=== PATIENT | female | born 1985 | race Caucasian/White ===

== ENCOUNTER 2023-04-25 12:53 | Emergency (ER) | payer OTHER ==
[2023-04-25 14:08] LABS: BASOPHILS % (AUTO) 0.4 %; EOSINOPHILS # (AUTO) 0.1 10^3/uL (0.0-0.7); EOSINOPHILS % (AUTO) 1.1 %; HGB - HEMOGLOBIN 14.6 g/dL (12.0-16.0); LYMPHOCYTES # (AUTO) 2.7 10^3/uL (1.5-3.5); LYMPHOCYTES % (AUTO) 35.6 %; MEAN CORPUSCULAR HGB CONC 33.2 g/dL (32.0-36.0); MEAN CORPUSCULAR VOLUME 93.4 fL (81.0-99.0); MEAN PLATELET VOLUME 8.9 fL (7.9-10.8); MONOCYTES # (AUTO) 0.6 10^3/uL (0.0-1.0); MONOCYTES % (AUTO) 7.4 %; NEUTROPHILS # (AUTO) 4.2 10^3/uL (1.5-6.6); NEUTROPHILS % (AUTO) 55.4 %; PLT - PLATELET COUNT 238 10^3/uL (130-450); RED BLOOD COUNT 4.71 10^6/uL (4.20-5.40); RED CELL DISTRIBUTION WIDTH 12.1 % (12.0-15.0); WHITE BLOOD COUNT 7.6 x10^3/uL (4.8-10.8)
[2023-04-25 14:22] LABS: ALBUMIN 4.9 g/dL (3.2-5.5); ALBUMIN/GLOBULIN RATIO 1.6 (1.0-2.2); BILIRUBIN,TOTAL 0.4 mg/dL (0.2-1.0); CALCIUM 10.1 mg/dL (8.5-10.3); CREATININE 0.8 mg/dL (0.6-1.3); POTASSIUM 4.6 mmol/L (3.5-4.5); TOTAL PROTEIN 7.9 g/dL (6.4-8.9)
[2023-04-25] MEDS ORDERED: KETOROLAC 15 MG/ML VIAL IVP STA (14:56)
--- NOTE | 2023-04-25 14:57 | ED Physician Documentation ---
PD HPI ABD PAIN - Stated complaint Stated Complaint: L BACK PX,CHILLS,ABD PX - Chief complaint Chief Complaint: Abd Pain - History obtained from History obtained from: Patient - Additional information Additional information: 37-year-old otherwise healthy woman has had left flank pain for the last week generally worsening. No injury. Nothing really makes it better or worse. Over the last day though she has developed chills and nausea with it and it be has become more severe. It is not related to eating. Her daughter whom she is breast-feeding kind of stood up on her abdomen today and it was quite painful. Review of Systems Constitutional: reports: Chills. denies: Fever Cardiac: denies: Chest pain / pressure, Palpitations Respiratory: denies: Dyspnea, Cough GI: reports: Abdominal Pain, Nausea. denies: Vomiting, Constipation, Diarrhea : denies: Dysuria, Frequency, Hesitancy PD PAST MEDICAL HISTORY - Past Medical History Past Medical History: No - Past Surgical History Ortho: Other /PIN DRAFTER: Breast implants - Present Medications Home Medications: Ambulatory Orders Medication Instructions Recorded Confirmed Oxycodone HCl/Acetaminophen 1 - 2 each PO Q6H PRN #14 tablet 04/25/23 [Percocet 5-325 mg Tablet] - Allergies Allergies/Adverse Reactions: Allergies Allergy/AdvReac Type Severity Reaction Status Date / Time No Known Drug Allergies Allergy Verified 04/25/23 13:43 - Social History Does the pt smoke?: No Smoking Status: Never smoker Does the pt drink ETOH?: No Does the pt have substance abuse?: No - Immunizations Immunizations are current?: No PD ED PE NORMAL - Vitals Vital signs reviewed: Yes - General General: Alert and oriented X 3, No acute distress - Cardiac Cardiac: RRR, No murmur - Respiratory Respiratory: No respiratory distress, Clear bilaterally - Abdomen Abdomen: Normal bowel sounds, Soft, Other (Mild left lower quadrant tenderness without surgical signs. No flank tenderness or rash.) - Neuro Neuro: Alert and oriented X 3, Normal speech Results - Vitals Vitals: Vital Signs - 24 hr 04/25/23 04/25/23 04/25/23 13:16 15:26 18:17 Temperature 37 C Heart Rate 86 92 71 Respiratory 16 18 18 Rate Blood Pressure 146/88 H 109/68 119/70 O2 Saturation 100 97 100 Oxygen O2 Source Room air - Labs Labs: Laboratory Tests 04/25/23 04/25/23 04/25/23 13:45 14:04 14:04 WBC 7.6 RBC 4.71 Hgb 14.6 Hct 44.0 MCV 93.4 MCH 31.0 MCHC 33.2 RDW 12.1 Plt Count 238 MPV 8.9 Neut # (Auto) 4.2 Lymph # (Auto) 2.7 Sandoval # (Auto) 0.6 Eos # (Auto) 0.1 Baso # (Auto) 0.0 Absolute Nucleated RBC 0.00 Nucleated RBC % 0.0 Sodium 140 Potassium 4.6 H Chloride 101 Carbon Dioxide 33 H Anion Gap 6.0 BUN 14 Creatinine 0.8 Estimated GFR (MDRD) 82 L Glucose 99 Calcium 10.1 Total Bilirubin 0.4 AST 30 ALT 42 Alkaline Phosphatase 52 Total Protein 7.9 Albumin 4.9 Globulin 3.0 Albumin/Globulin Ratio 1.6 Lipase 24 Urine Color YELLOW Urine Clarity CLEAR Urine pH 6.0 Ur Specific [place] 1.025 Urine Protein NEGATIVE Urine Glucose (UA) NEGATIVE Urine Ketones NEGATIVE Urine Occult Blood NEGATIVE Urine Nitrite NEGATIVE Urine Bilirubin NEGATIVE Urine Urobilinogen 0.2 (NORMAL) Ur Leukocyte Esterase NEGATIVE Ur Microscopic Review NOT INDICATED Urine Culture Comments NOT INDICATED Urine HCG, Qual NEGATIVE PD Medical Decision Making - ED course ED course: 37-year-old with left flank pain for about a week, worse with movement. She had chills and nausea but no fevers or shortness of breath. Given the location and left lower quadrant tenderness initial concern was for diverticulitis/pyelonephritis. No evidence of this on CT/urinalysis and her basic blood work including CBC and CMP were normal/unremarkable. She is midcycle right now and just had her first menses after a few years as she is breast-feeding. On my view of the CT I did wonder if her uterus was prominent and she also had what I thought was a slightly excessive stool load. She went for an ultrasound as well and the RDMS reported to me as normal other than a small simple right ovarian cyst. She has a lot of pain with motion and this may just be regular old back pain, but given the abdominal tenderness I gave her close return precautions and we will trial some MiraLAX as well. Departure - Departure Disposition: 01 Home, Self Care Clinical Impression: Back pain Qualifiers: Back pain location: low back pain Chronicity: acute Back pain laterality: left Sciatica presence: without sciatica Qualified Code(s): M54.50 - Low back pain, unspecified Condition: Good Record reviewed to determine appropriate education?: Yes Instructions: ED Abdominal Pain Female Non-Specific Abdominal Pain, ED Neck Back Pain General Prescriptions: Oxycodone HCl/Acetaminophen [Percocet 5-325 mg Tablet] 1 - 2 each PO Q6H PRN #14 tablet PRN Reason: pain Comments: Initially I wondered if you might have diverticulitis given that you were tender in the left lower quadrant, there was no evidence of this on CT. The CT was officially read as normal but to my I wondered if you had a prominent uterus and there was somewhat higher than average stool load. The ultrasound was reported to me as normal as well, this is more sensitive for uterine issues. Unclear if the pain is coming from your back and might just be regular rolled back pain, but given that you are tender in the left lower quadrant I like to to return if worse or if not better over the next couple of days. You can take ibuprofen in addition to the prescription pain medication. Regardless, follow-up with your primary care physician to discuss this visit. I sent your prescription electronically to the [facility] in [place]. I am prescribing a short course of narcotic pain medication for you. These are potentially dangerous and addictive medications that should be used carefully. These medications may constipate you. Take an [id number]-[id number] stool softener (docusate) twice daily with plenty of water while taking these medications. If you go 24 hours without a bowel movement, take [id number] miralax, per package instructions. Do not drink or drive while taking these medications. If you received narcotic or sedating medications while in the emergency department, do not drive for 24 hours. Store this medication in a safe, secure place and out of reach of children. It is a violation of federal law to give or sell this medication to another pers on or to use in a manner other than prescribed. The ED will not refill narcotic prescriptions, including prescriptions lost or stolen. To dispose of unwanted medications: 1. [facility]'s Office provides a drop box for medication in pill form only (no liquids) 8:00 am to 4:30 p.m. Friday-Friday in the lobby of [facility], [address] Empty pills into ziplock bag before disposal. Call [phone] for information. 2.[employer] is a free service available to all [facility] residents. Go to [email or web address] Note that many narcotic pain relievers also contain Tylenol/acetaminophen. Please ensure that your total dose of acetaminophen from all sources does not exceed 3 g (3000 mg) per day. Forms: PCP List
[2023-04-25 14:58] LABS: BILIRUBIN,URINE NEGATIVE (NEGATIVE); CLARITY,URINE CLEAR (CLEAR); GLUCOSE, URINE (UA) NEGATIVE (NEGATIVE); HCG UR QUAL NEGATIVE; KETONES,URINE (UA) NEGATIVE (NEGATIVE); LEUKOCYTE ESTERASE, URINE NEGATIVE (NEGATIVE); NITRITE,URINE NEGATIVE (NEGATIVE); OCCULT BLOOD,URINE NEGATIVE (NEGATIVE); PROTEIN,URINE NEGATIVE (NEGATIVE); UROBILINOGEN,URINE 0.2 (NORMAL) E.U./dL (NORMAL)
--- NOTE | 2023-04-25 19:01 | CT Report ---
PROCEDURE: ABDOMEN/PELVIS W INDICATIONS: IV only, left lower quadrant pain and tenderness CONTRAST: 100ml omni 300 TECHNIQUE: After the administration of intravenous contrast, 5 mm thick sections acquired from the diaphragms to the symphysis. 5 mm thick coronal and sagittal reformats were acquired. For radiation dose reducti on, the following was used: automated exposure control, adjustment of mA and/or kV according to william ent size. COMPARISON: None FINDINGS: Image quality: Excellent. Lung bases and heart: Unremarkable. Liver: No solid mass. Gallbladder and biliary tree: Spleen: No splenomegaly. Pancreas: No pancreatic ductal dilation. Adrenals: No adrenal nodule. Kidneys and ureters: No hydronephrosis. No renal cystic lesion which requires follow up. No solid mas s. Bowel and peritoneum: No bowel distension. No pathologic free fluid. Lymph nodes: No central or retroperitoneal adenopathy. Vessels: No infrarenal aortic aneurysm. PELVIS Reproductive organs: Unremarkable. Bladder: No abnormal wall thickening, accounting for underdistension. Pelvic lymph nodes: No pelvic adenopathy by size criteria. Bones: No aggressive osseous abnormality. Other: No significant ventral or inguinal hernia. IMPRESSION: Normal CT of the abdomen and pelvis without explanation for pain. Reviewed by: Jessica Corona MD on 04/25/2023 6:59 PM PDT Approved by: Jessica Corona MD on 04/25/2023 6:59 PM PDT Station ID: [id number]
[2023-04-25] MEDS ORDERED: HYDROmorphone 1 MG/ML CARPUJECT IVP STA (19:02)
[2023-04-25] MEDS ORDERED: iohexoL-300 100 ML VIAL IVP ONE (19:08)
[2023-04-25 20:18] VITALS: BP 112/70; O2SAT 99
--- NOTE | 2023-04-25 20:27 | Ultrasound Report ---
PROCEDURE: Pelvic w/Transvag+Doppler Comp INDICATIONS: Pelvic pain. TECHNIQUE: Real-time scanning was performed of the pelvic organs, with image documentation. Additional endovagi nal scanning was necessary due to incomplete visualization of the adnexal and endometrial structures by transabdominal scanning. Doppler interrogation was performed of the ovaries bilaterally. COMPARISON: None. FINDINGS: Uterus: Uterus is anteverted and normal in size at 9.8 x 4.4 x 6.3 cm. The myometrium is homogeneou s. The endometrium measures 8.5 mm in combined thickness. There are echogenic foci in endometrium. Ovaries: The right ovary measures 4.0 x 2.8 x 3.5 cm, with a calculated ovarian volume of 20.7 cc. The left ovary measures 2.6 x 1.7 x 2.0 cm, with a calculated ovarian volume of 4.6 cc. Appropriate blood flow to the ovaries with Doppler interrogation. Less than 12 follicles can be seen in each ov shayla. No there is a 2.3 x 2.3 x 2.2 cm simple appearing cyst in the right ovary, probably a dominant ovarian follicle. No cystic lesions measuring greater than 3 cm. Other: Trace free pelvic fluid is noted. IMPRESSION: 1. A cause for pelvic pain is not identified. 2. A 2.3 centimeters cyst in right ovary, probably a dominant ovarian follicle. 3. Foci of calcification in the endometrium, suggesting synechia. 4. Trace free fluid in pelvis, within physiological limits. Reviewed by: Orlando Jackson MD on 04/25/2023 8:26 PM PDT Approved by: Orlando Jackson MD on 04/25/2023 8:26 PM PDT Station ID: [id number]
== END 2023-04-25 20:15 | disposition home or self-care (01) ==
LOC: ED 12:53
DX: M54.50 Low back pain, unspecified (principal)
CPT/HCPCS: 36415; 74177; 76830; 76856; 80053; 81003; 81025; 83690; 85025; 93975; 96374; 96375; 99284; J1170; Q9967; 81001; 87086

== ENCOUNTER 2023-09-11 16:45 | Outpatient (CLI) | payer OTHER | END 2023-09-11 17:00 | disposition home or self-care (01) | LOC: LAB.N 16:45 | PROVIDERS: ATTEND Nurse Practitioner | DX: L02.91 Cutaneous abscess, unspecified (principal) | CPT/HCPCS: 87070; 87205 ==